=== PATIENT | female | born 1975 | race Two or more races ===

== ENCOUNTER 2024-08-11 14:05 | Emergency (ER) | payer OTHER ==
[~2024-08-11] VITALS: Ht 162.6 cm; Wt 75.3 kg
[2024-08-11] MEDS ORDERED: COZAAR25 MG PO (15:56)
[2024-08-11] MEDS ORDERED: LEXAPRO5 MG PO (15:56)
[2024-08-11] MEDS ORDERED: FAMOTIDINE/PF 20 MG/2 ML VIAL IV ONE (16:45)
[2024-08-11] MEDS ORDERED: LACTOBACILLUS ACIDOPHILUS 1 CAP CAP PO ONE (16:45)
[2024-08-11] MEDS ORDERED: ONDANSETRON HCL 2 MG/ML VIAL IV ONE (16:45)
[2024-08-11] MEDS ORDERED: 0.9 % SODIUM CHLORIDE 500 ML IV ONE (16:45)
[2024-08-11] MEDS ORDERED: KETOROLAC TROMETHAMINE 30 MG VIAL IV ONE (17:00)
[2024-08-11 18:14] LABS: HEMATOCRIT 44.1 % (36.0-45.00); HEMOGLOBIN 14.7 g/dL (12.0-15.00); MEAN CELL VOLUME 96.4 fL (80.00-100.00); MEAN CORPUSCULAR HEMOGLOBIN 32.2 pg (27.00-32.0); MEAN CORPUSCULAR HGB CONC 33.4 g/dl (32.0-36.0); PLATELET COUNT 298 K/uL (150-450); RED BLOOD COUNT 4.57 M/uL (4.00-6.00); RED CELL DISTRIBUTION WIDTH 13.3 % (11.5-14.5)
[2024-08-11 18:38] LABS: ALBUMIN 3.8 gm/dL (3.4-5.0); BILIRUBIN TOTAL 0.27 mg/dL (0.3-1.2); CALCIUM 9.3 mg/dL (8.5-10.1); CREATININE SERUM 0.72 mg/dL (0.55-1.02); GFR 85.4; GLOBULINA 3.6 G/DL (2.4-3.5); POTASSIUM 3.01 mEq/L (3.5-5.1); TOTAL PROTEIN 7.4 gm/dL (6.4-8.2)
[2024-08-11] MEDS ORDERED: INTESTINEX680 M1 PO (19:51)
[2024-08-11] MEDS ORDERED: ONDANSETRON ODT4 MG PO (19:51)
[2024-08-11] MEDS ORDERED: PEPCID AC20 MG PO (19:51)
== END 2024-08-11 20:05 | disposition home or self-care (01) ==
LOC: ER 14:07
PROVIDERS: General Practice
DX: K52.9 Noninfective gastroenteritis and colitis, unspecified (principal); I10 Essential (primary) hypertension; Z20.822 Contact with and (suspected) exposure to COVID-19

== ENCOUNTER 2024-10-01 21:49 | Emergency (ER) | payer OTHER ==
[~2024-10-01] VITALS: Ht 152.4 cm; Wt 77.1 kg
[~2024-10-01 21:49] MED LIST: COZAAR25 MG PO; INTESTINEX680 M1 PO; LEXAPRO5 MG PO; ONDANSETRON ODT4 MG PO; PEPCID AC20 MG PO
[2024-10-01] MEDS ORDERED: GLUMETZA500 MG PO (21:58)
[2024-10-02] MEDS ORDERED: IPRATROPIUM/ALBUTEROL SULFATE 3 ML AMPUL.NEB IH STA (02:07)
[2024-10-02] MEDS ORDERED: HYDROCODONE/CHLORPHEN P-STIREX 5 ML ML PO STA (02:08)
[2024-10-02 02:35] LABS: HEMATOCRIT 43.2 % (36.0-45.00); MEAN CELL VOLUME 94.7 fL (80.00-100.00); MEAN CORPUSCULAR HEMOGLOBIN 32.9 pg (27.00-32.0); MEAN CORPUSCULAR HGB CONC 34.7 g/dl (32.0-36.0); PLATELET COUNT 345 K/uL (150-450); RED BLOOD COUNT 4.57 M/uL (4.00-6.00); RED CELL DISTRIBUTION WIDTH 14.2 % (11.5-14.5)
[2024-10-02] MEDS ORDERED: IPRATROPIUM/ALBUTEROL SULFATE 3 ML AMPUL.NEB IH ONE (02:51)
[2024-10-02 03:01] LABS: ABG PH 7.416 (7.35-7.45); ABG PO2 75.1 mmHg (80-100); BASE EXCESS 1.6 mmol/l; BICARBONATE 26.4 mmol/l (23-25); SaO2 95.2 %; Tco2 27.7 mmol/l
[2024-10-02 03:08] LABS: allen test SATISFACTORY; puncture site RADIAL RIGHT
[2024-10-02 03:09] LABS: o2 21 %
[2024-10-02 03:10] LABS: CALCIUM 9.2 mg/dL (8.5-10.1); CREATININE SERUM 0.81 mg/dL (0.55-1.02); GFR 74.54; POTASSIUM 3.11 mEq/L (3.5-5.1)
[2024-10-02] MEDS ORDERED: CEFTRIAXONE SODIUM 1,000 MG VIAL IM STA (03:36)
== END 2024-10-02 04:04 | disposition home or self-care (01) ==
LOC: ER 21:52
DX: R53.81 Other malaise (principal); J40 Bronchitis, not specified as acute or chronic; Z20.822 Contact with and (suspected) exposure to COVID-19